=== PATIENT | female | born 1970 | race Caucasian/White ===

== ENCOUNTER 2016-10-21 08:10 | Day surgery (SDC) | payer OTHER ==
[~2016-10-21 08:10] MED LIST: ALPR1TAB2 PO; AMIT10TA6 PO; CLIN30GE2 TP; ERGO2000 PO; FERR-83 PO; FLUT9.9S NS; HYDR-656 PO; HYDR15SO8 PO; IBUP800T28 PO; KETO120S3 TP; LEVO150T5 PO; OMEP40CA36 PO; POTA8TAB3 PO; PROM25TA14 PO; TIZA2TAB3 PO; TOPI50TA88 PO; TRAZ-115 PO; [UNRECOGNIZED DRUG - CODE] PO
[2016-10-21] MEDS ORDERED: Iohexol 240 mg/mL 10 mL Inj ONE (08:11)
[2016-10-21] MEDS ORDERED: MethylprednisoLONE Depot 80 mg/mL Inj ONE (08:11)
[2016-10-21] MEDS ORDERED: Bupivacaine-MPF 0.25% 30 mL Inj ONE (08:11)
[2016-10-21 08:21] VITALS: BP 115/78; PULSE 95; RESP 20
[2016-10-21] MEDS ORDERED: PRE20 PO (08:29)
--- NOTE | 2016-10-21 16:29 | PCM.PROC ---
Procedure Note Date of Service: Oct 21, 2016 Pre Procedure Diagnosis: PROCEDURE: LEFT Sacroiliac joint injection (fluoroscopically guided) PRE-PROCEDURE DIAGNOSIS: Sacroiliitis POST-PROCEDURE DIAGNOSIS: same INDICATION: 46-year-old female with LEFT posterior hip pain consistent with sacroiliitis ASA / ANTICOAGULATION: No asa x 7 days PERFORMED BY: Iglesia Sampson MD DESCRIPTION OF PROCEDURE: Patient was met in the holding area. Consent was signed, site was confirmed and all questions were answered. Patient was taken to the procedure suite and placed prone on the procedure table. Local anesthesia with 1% lidocaine was injected into the epidermidis and dermis. A 22-gauge Quincke spinal needle was advanced towards the sacroiliac joint after visualization was optimized fluoroscopically in the AP view. Proper positioning in the joint was confirmed by injecting contrast. We then took a lateral view to reconfirm proper positioning in the sacroiliac joint. 40mg depomedrol with 2.5cc of 0.25% Bupivicaine injected without difficulty. ANESTHESIA: Local. EBL: None. No Blood Products Used COMPLICATIONS: None SPECIMENS: None POST-PROCEDURE DISPOSITION: Patient tolerated the procedure well was returned to the holding area in stable condition. They were discharged home when all discharge criteria were met. Fluro time: See Radiology Report Evaluation/Physical Exam before discharge revealed: DISCHARGE MEDICATIONS: none FOLLOW UP: 4-6 weeks Iglesia Osman MD, MD Oct 21, 2016 16:29
== END 2016-10-21 23:59 | disposition home or self-care (01) ==
LOC: END 08:10
PROVIDERS: ATTEND Anesthesiology Pain Medicine
DX: M46.1 Sacroiliitis, not elsewhere classified (principal); M54.9 Dorsalgia, unspecified; E03.9 Hypothyroidism, unspecified; F32.9 Major depressive disorder, single episode, unspecified; Z98.84 Bariatric surgery status
CPT/HCPCS: G0260; J1040

== ENCOUNTER 2017-01-27 08:00 | Day surgery (SDC) | payer OTHER ==
[~2017-01-27] VITALS: Ht 165.1 cm; Wt 67.0 kg
[~2017-01-27 08:00] MED LIST changes: -ALPR1TAB2 PO; -FERR-83 PO; -FLUT9.9S NS; +PRE20 PO; -TRAZ-115 PO
[2017-01-27] MEDS ORDERED: Lidocaine PF 2% 10 mL Inj ONE (08:01)
[2017-01-27] MEDS ORDERED: Iohexol 240 mg/mL 10 mL Inj ONE (08:01)
[2017-01-27] MEDS ORDERED: Dexamethasone 10 mg/mL Inj ONE (08:01)
[2017-01-27] MEDS ORDERED: ASPI-973 PO (08:31)
[2017-01-27 08:33] VITALS: BP 124/79; PULSE 94; RESP 14; O2SAT 100
[2017-01-27 08:50] VITALS: BP 128/73; PULSE 94; RESP 16; O2SAT 100
[2017-01-27 08:54] VITALS: BP 114/75; PULSE 85; RESP 14; O2SAT 100
--- NOTE | 2017-01-27 14:56 | PCM.PROC ---
Procedure Note Date of Service: January 27, 2017 Pre Procedure Diagnosis: PROCEDURE: RIGHT L3 transforaminal epidural steroid injection PRE-PROCEDURE DIAGNOSIS: Lumbar radiculopathy POST-PROCEDURE DIAGNOSIS: same INDICATION: 46-year-old patient with RIGHT leg pain consistent with lumbar radiculopathy PERFORMED BY: Iglesia Sampson MD DESCRIPTION OF PROCEDURE: Patient was met in the holding area. Consent was signed, site was confirmed and all questions were answered. was taken to the procedure suite and placed prone on the procedure table. The image intensifier was manipulated to minimize double shadows of the vertebral endplates above the neural foramen to be addressed. The image intensifier was rotated 30 ipsilaterally for Jeffery dog appearance. A 25- gauge 3.5-inch Quincke needle was advanced towards the target area using tunnel view. The image intensifier was then changed to the lateral view and the needle was advanced towards the "safe triangle". Proper positioning was confirmed in the AP view so the tip of the needle ended at the most inferolateral aspect of the superior pedicle. Proper positioning was confirmed with injection of radiopaque contrast dye which showed delineation of the nerve root as well as epidural spread. The contrast was then injected under live fluoroscopy to rule out inadvertent vascular uptake. 1 cc of 2% Lidocaine was injected slowly. After 1 minute the patient was found to be able to move the legs appropriately with no signs or symptoms of vascular uptake of the lidocaine 10 mg dexamethasone was injected followed by another 1/2 cc of 2% Lidocaine . ANESTHESIA: Local EBL: None. No Blood Products Used COMPLICATIONS: None SPECIMENS: None POST-PROCEDURE DISPOSITION: Patient was returned to the holding area in stable condition. They were discharged home when all discharge criteria were met. Evaluation/Physical Exam before discharge revealed: Preprocedure pain: No pain prior to procedure/10. Post procedure pain: /10 DISCHARGE MEDICATIONS: (none, unless otherwise noted) FOLLOW UP: Return to clinic in 2 weeks Iglesia Sampson MD * Pain Management * Anesthesiology .ED: Y: Patient given care and follow up instructions Iglesia Sampson MD January 27, 2017 14:56
== END 2017-01-27 23:59 | disposition home or self-care (01) ==
LOC: END 08:00
PROVIDERS: ATTEND Anesthesiology Pain Medicine
DX: M54.16 Radiculopathy, lumbar region (principal)
CPT/HCPCS: 64483; J1100